=== PATIENT | male | born 1990 | race Hispanic/Latino ===

== ENCOUNTER 2018-03-09 20:54 | Emergency (ER) | payer SELFPAY ==
[2018-03-09] MEDS ORDERED: Sodium Chloride 0.9% 1,000 ML IV ONE (21:42)
--- NOTE | 2018-03-09 21:57 | C.PDOC ---
History Of Present Illness 27 year old male presents to the ER with a complaint of LUQ pain with nausea for the past 3 days. Denies vomiting, diarrhea, fever, dysruia, hematuria, chest pain, cough, or SOB. Patient has a Hx of HTN and admits to noncompliance with medication for approximately one year, does not remember the name of it. Time Seen by Provider: 03/09/18 21:09 Chief Complaint (Nursing): Abdominal Pain History Per: Patient History/Exam Limitations: no limitations Onset/Duration Of Symptoms: Days (3) Current Symptoms Are (Timing): Still Present Location Of Pain/Discomfort: LUQ Quality Of Discomfort: Unable To Describe Associated Symptoms: Nausea. denies: Vomiting, Diarrhea, Chest Pain, Urinary Symptoms, Other (Cough, SOB) Exacerbating Factors: None Alleviating Factors: None Recent travel outside of the [place]: No Past Medical History Reviewed: Historical Data, Nursing Documentation, Vital Signs Vital Signs: Last Vital Signs Temp 98.3 F 03/09/18 21:10 Pulse 68 03/09/18 21:10 Resp 16 03/09/18 21:10 BP 169/107 H 03/09/18 21:10 Pulse Ox 99 03/09/18 21:10 - Medical History PMH: HTN Family History: States: Unknown Family Hx - Social History Hx Alcohol Use: No Hx Substance Use: Yes Review Of Systems Except As Marked, All Systems Reviewed And Found Negative. Gastrointestinal: Positive for: Nausea, Abdominal Pain Physical Exam - Physical Exam Appears: Non-toxic, Other (Comfortable) Skin: Warm, Dry, Other (erythematous cheeks B/L , scattered track castro on B/L arms) Head: Atraumatic, Normacephalic Eye(s): bilateral: Normal Inspection Oral Mucosa: Moist Neck: Normal, Supple Chest: Symmetrical, No Tenderness Cardiovascular: Rhythm Regular Respiratory: Normal Breath Sounds, No Rales, No Rhonchi, No Wheezing Gastrointestinal/Abdominal: Soft, Tenderness (Mild LUQ. Negative Mcnulty's, Negative Mcburney's), No Guarding, No Rebound Back: No CVA Tenderness Neurological/Psych: Oriented x3, Normal Speech ED Course And Treatment - Laboratory Results Result Diagrams: 03/09/18 22:25 03/09/18 22:25 O2 Sat by Pulse Oximetry: 99 (Room air) Pulse Ox Interpretation: Normal Progress Note: Blood work and urinalysis ordered. IV fluids and toradol admi nistered. Disposition Counseled Patient/Family Regarding: Studies Performed, Diagnosis, Need For Followup, Rx Given - Disposition Referrals: Dottie Jones MD [Medical Doctor] - Disposition: HOME/ ROUTINE Disposition Time: 00:20 Condition: STABLE Additional Instructions: FOLLOW UP WITH YOUR DOCTOR IN 1-2 DAYS, AND DISCUSS YOUR HYPERTENSION MEDICATIONS WITH HIM/HER USE MEDICATIONS NEEDED FOR ABDOMINAL PAIN RETURN TO ER IF SYMPTOMS WORSEN Prescriptions: Acetaminophen [Tylenol 325mg tab] 650 mg PO Q6 PRN #30 tab PRN Reason: pain/fever Famotidine [Pepcid] 20 mg PO BID PRN #20 tab PRN Reason: abdominal Instructions: Acute Abdomen (Belly Pain), Adult (DC) Forms: [employer] (Amharic) Print Language: [place]ER - POA Present On Arrival: None - Clinical Impression Clinical Impression: Abdominal pain, left upper quadrant - Scribe Statement The provider has reviewed the documentation as recorded by the Scribkaryn Castillo All medical record entries made by the Romeoibkaryn were at my direction and personally dictated by me. I have reviewed the chart and agree that the record accurately reflects my personal performance of the history, physical exam, medical decision making, and the department course for this patient. I have also personally directed, reviewed, and agree with the discharge instructions and disposition.
[2018-03-09] MEDS ORDERED: Sodium Chloride 0.9% 1,000 ML ONE (22:31)
[2018-03-09 22:39] LABS: BASO % 0.4 % (0.0-2.0); EOS # 0.1 K/uL (0.0-0.7); EOS % 0.7 % (0.0-4.0); HEMOGLOBIN 12.2 g/dL (12.0-18.0); LYMPH # 1.8 K/uL (1.0-4.3); LYMPH % 20.3 % (20.0-40.0); MEAN CELL VOLUME 83.6 fL (80.0-94.0); MEAN CORPUSCULAR HGB CONC 32.3 g/dL (33.0-37.0); MEAN PLATELET VOLUME 7.7 fL (7.2-11.7); MONO # 0.7 K/uL (0.0-0.8); MONO % 7.7 % (0.0-10.0); NEUT # 6.2 K/uL (1.8-7.0); NEUT % 70.9 % (50.0-75.0); NRBC % 0.1 % (0.0-2.0); RBC 4.51 Mil/uL (4.40-5.90); RED CELL DISTRIBUTION WIDTH 16.5 % (11.5-14.5); WHITE BLOOD COUNT 8.7 K/uL (4.8-10.8)
[2018-03-09 22:49] LABS: ALB/GLOB RATIO 1.4 (1.0-2.1); ALBUMIN 3.9 g/dL (3.5-5.0); ALT/SGPT 24 U/L (21-72); AST/SGOT 23 U/L (17-59); BLOOD UREA NITROGEN 14 mg/dL (9-20); CALCIUM 8.3 mg/dl (8.6-10.4); GFR NON-AFRICAN AMERICAN > 60; LIPASE 200 U/L (23-300)
[2018-03-09 23:39] LABS: URINE BILIRUBIN NEGATIVE (NEGATIVE); URINE BLOOD NEGATIVE (NEGATIVE); URINE CLARITY Clear (Clear); URINE COLOR Straw (YELLOW); URINE GLUCOSE (UA) NORMAL (Normal); URINE LEUKOCYTE ESTERASE NEG Leu/uL (Negative); URINE PROTEIN 1+ mg/dL (NEGATIVE); URINE UROBILINOGEN NORMAL mg/dL (0.2-1.0)
[2018-03-10 06:38] VITALS: BP 145/74; PULSE 86; RESP 17; TEMP 98.9; O2SAT 100
== END 2018-03-10 06:39 | disposition home or self-care (01) ==
LOC: C.ER 20:54
DX: R10.12 Left upper quadrant pain (principal)
CPT/HCPCS: 80053; 81001; 83690; 85025; 96374; 99285; J1885; J7030